=== PATIENT | male | born 1940 | race Caucasian/White ===

== ENCOUNTER 2016-12-10 08:02 | Inpatient (IN) | payer MEDICARE, BC ==
[~2016-12-10] VITALS: Ht 175.3 cm; Wt 85.1 kg
[2016-12-10] MEDS ORDERED: VICOTAB4 PO (08:11)
[2016-12-10] MEDS ORDERED: AMLO5 PO (08:11)
[2016-12-10] MEDS ORDERED: ENAL20TA81 PO (08:11)
[2016-12-10] MEDS ORDERED: ZOLO100T PO (08:54)
[2016-12-10] MEDS ORDERED: [UNRECOGNIZED DRUG - OTHER] PO (08:54)
[2016-12-10] MEDS ORDERED: VITA2000 PO (08:54)
[2016-12-10] MEDS ORDERED: ALLO300T2 PO (08:54)
[2016-12-10] MEDS ORDERED: [UNRECOGNIZED DRUG - OTHER] PO (08:54)
[2016-12-10] MEDS ORDERED: OMEG100010 PO (08:54)
[2016-12-10] MEDS ORDERED: ASPI1TAB69 PO (08:54)
[2016-12-10] MEDS ORDERED: LIPI10TA PO (08:54)
[2016-12-10] MEDS ORDERED: ESSENTIAL OILS TOPICAL (08:54)
[2016-12-10] MEDS ORDERED: ZYRT10CA PO (08:54)
[2016-12-21] MEDS ORDERED: MULTTAB4 PO (09:34)
[2016-12-21 09:43] VITALS: BP 150/79; PULSE 66; RESP 16; TEMP 98; O2SAT 95
[2016-12-21] MEDS: CHLORHEXIDINE GLUCONATE 4% SOLN 120 ML BTL TOPICAL SCH (10:30)
[2016-12-21] MEDS ORDERED: EXPAREL PERI-ARTICULAR INJECTION (TOTAL VOL. 60 ML) P-ARTICULR SCH ×2 (10:30)
[2016-12-21] MEDS ORDERED: ceFAZolin 2 GM PREMIX 50 ML IV SCH (10:30)
[2016-12-21] MEDS ORDERED: SODIUM CHLORID 0.9% 500 ML IV PRN (10:45)
[2016-12-21] MEDS ORDERED: METOPROLOL TARTRATE 25 MG TAB PO PRN (10:45)
[2016-12-21] MEDS ORDERED: POVIDONE IODINE 5% (ANTISEPSIS KIT) 4 APPLICATIONS EACH NARE PRN (10:45)
[2016-12-21] MEDS ORDERED: INSULIN HUMAN REGULAR 1,000 UNITS/10 ML VIAL SQ PRN (10:45)
[2016-12-21] MEDS ORDERED: CHLORHEXIDINE GLUCONATE 2 % 1 PACK (2 CLOTHS) TOPICAL PRN (10:45)
[2016-12-21] MEDS ORDERED: LACTATED RINGER'S 1000 ML IV PRN (10:45)
[2016-12-21] MEDS ORDERED: TRANEXAMIC ACID INJ 800 MG in SODIUM CHLORIDE 0.9% INJ 100 ML IV SCH ×2 (11:00→17:00)
[2016-12-21] MEDS ORDERED: PROPOFOL 200 MG/20 ML AMP IV ONE (11:29)
[2016-12-21] MEDS ORDERED: LACTATED RINGER'S 1000 ML INJ 1,000 ML IV ONE (11:30)
[2016-12-21] MEDS ORDERED: PHENYLEPH/NS 1000 MCG/10 ML SYR IV ONE (11:30)
[2016-12-21] MEDS ORDERED: NEOSTIGMINE 3 MG/3 ML SYR IV ONE (11:30)
[2016-12-21] MEDS ORDERED: ONDANSETRON HCL 4 MG/2 ML VIAL IV PUSH ONE (11:30)
[2016-12-21] MEDS ORDERED: ePHEDrine/NS 25 MG/5 ML SYR IV ONE (11:30)
[2016-12-21] MEDS ORDERED: GENTAMICIN SULFATE 80 MG/2 ML VIAL ONE (12:00)
[2016-12-21] MEDS: LACTATED RINGER'S 1000 ML INJ 1,000 ML IV SCH (12:08)
[2016-12-21] MEDS ORDERED: MIDAZOLAM HCL 2 MG/2 ML VIAL ONE (12:14)
[2016-12-21] MEDS ORDERED: Post-op Orders (for Pharmacy) MISC XX ONE (12:15)
[2016-12-21] MEDS ORDERED: TRANEXAMIC ACID INJ 0 MG in SODIUM CHLORIDE 0.9% INJ 100 ML IV SCH (12:15)
[2016-12-21] MEDS ORDERED: CETIRIZINE HCL 10 MG TAB PO PRN (12:15)
[2016-12-21] MEDS ORDERED: MORPHINE SULFATE 8 MG/ML INJ IV PUSH PRN (12:15)
[2016-12-21] MEDS ORDERED: SODIUM CHLORIDE 0.9% FLUSH 5 ML FLUSH IVF PRN (12:15)
[2016-12-21] MEDS ORDERED: ONDANSETRON HCL 4 MG/2 ML VIAL IVP PRN (12:15)
[2016-12-21] MEDS ORDERED: BISACODYL 10 MG SUPP RECTAL PRN (12:15)
[2016-12-21] MEDS ORDERED: NON-FORMULARY DRUG (Omega-3 Fatty Acids (Omega 3 1000 mg) 1 CAP) PO SCH (13:00)
[2016-12-21] MEDS ORDERED: *ONDANSETRON 4 MG VIAL PERIprocedural Use ONLY ONE (15:17)
[2016-12-21] MEDS ORDERED: *morphine SULFATE 8 MG/ML PERIprocedure ONLY ONE ×3 (15:20→15:52)
[2016-12-21] MEDS ORDERED: fentaNYL CITRATE 250 MCG/5 ML AMP ONE (15:20)
[2016-12-21] MEDS: KETOROLAC TROMETHAMINE 30 MG/ML (IVP) VIAL IVP SCH ×2 (15:36→20:24)
[2016-12-21] MEDS ORDERED: DO NOT ADM ANY ANTICOAGULANT DRUGS PRN (15:45)
[2016-12-21] MEDS ORDERED: *HYDROmorphone PF 1 MG VIAL PERIprocedural Use ONLY ONE (16:14)
--- NOTE | 2016-12-21 16:17 | RADRPT ---
EXAM DATE/TIME: 12/21/2016 15:45 [place] COMPARISON: No previous studies available for comparison. INDICATIONS : Post op right hip. MEDICAL HISTORY : None. SURGICAL HISTORY : None. ENCOUNTER: Initial ACUITY: 1 day PAIN SCORE: Non-responsive. LOCATION: Right hip. FINDINGS: 2 views of the right hip following recent total right arthroplasty demonstrates acetabular and proxim al femur hardware in place. There is a single acetabular screw. Soft tissue air is present, as expect ed. No fracture or acute finding is identified. Clips overlie the right scrotum. CONCLUSION: Expected changes are present following recent right total hip arthroplasty. No acute abnormalities se en. Kyler Moya MD on December 21, 2016 at 16:14 Board Certified Radiologist. This report was verified electronically.
[2016-12-21] MEDS: oxyCODONE/ACETAMINOPHEN 5 MG/325 MG TAB PO PRN ×2 (17:24→21:28)
[2016-12-21 17:30] VITALS: BP 121/69; PULSE 96; RESP 18; TEMP 95.4; O2SAT 94
--- NOTE | 2016-12-21 18:13 | PD.CONS ---
HPI Service [facility] Hospitalists Consult Requested By Dr arthur Reason for Consult Medical management Primary Care Physician Luis Fernando Garcia MD Diagnoses: History of Present Illness This is a 76-year-old male with past medical history of hypertension, hyperlipidemia, gout, depression who presents with [facility] for an elective right total hip replacement. Patient states that he has had long- standing arthritis of the hips, bilateral knees and hands. States that for some time he has been having some right knee pain after which the patient saw Dr. Arthur and after some imaging taken at his office was decided that he needed a right hip replacement. Patient states that he also had some physical therapy. I am being consulted for medical management, the patient denies chest pain, short of breath, nausea, vomiting, abdominal pain, dizziness, fevers or chills, cough. The patient states that he has some pain in the right hip which is 7/10 however he has not requested any pain medications yet. Review of Systems As per history of present illness, other systems reviewed by me and negative Past Family Social History Allergies: Coded Allergies: Oxycontin (Verified Allergy, Severe, Hallucinations, 12/21/16) Uncoded Allergies: TORSTEN (Allergy, Unknown, 12/10/16) Past Medical History 1. Gout. 2. Hypertension. 3. Depression. 4. Hyperlipidemia Past Surgical History 1. Surgery for retinal detachment repair in 2005. Reported Medications Multi Vitamin Mens (Multiple Vitamin) 1 Tab Tab 1 Tab PO DAILY Vitamin D3 (Cholecalciferol) 2,000 Unit Cap 2,000 Units PO DAILY Sigel 3 1000 mg (Sigel-3 Fatty Acids) 1 Cap Cap 1 Cap PO TID Zyrtec Allergy (Cetirizine HCl) 10 Mg Cap 10 Mg PO DAILY PRN Zoloft (Sertraline HCl) 100 Mg Tab 150 Mg PO DAILY Aspirin 81 Mg Tabdr 81 Mg PO DAILY Allopurinol 300 Mg Tab 300 Mg PO DAILY Lipitor (Atorvastatin Calcium) 10 Mg Tab 10 Mg PO Vasotec (Enalapril Maleate) 20 Mg Tab 20 Mg PO BID Norvasc (Amlodipine Besylate) 5 Mg Tab 5 Mg PO BID Vicoprofen (Hydrocodone-Ibuprofen) 7.5-200 Mg Tab 1 Tab PO Q6H PRN Active Ordered Medications Current Medications Medications (Trade) Dose Ordered Sig/Aaliyah Route Start Time Stop Time Status Last Admin Chlorhexidine Gluconate 1 applic 1 applic ONCE TOPICAL 12/21/16 10:30 12/24/16 10:29 12/21/16 10:30 Tranexamic Acid 800 mg/Sodium Chloride 108 ml @ 200 mls/hr ONCE IV 12/21/16 17:00 12/21/16 23:00 12/21/16 15:38 Bupivacaine Liposome 20 ml/ Sodium Chloride 60 ml @ 120 mls/hr ONCE P-ARTICULR 12/21/16 10:30 12/22/16 10:29 12/21/16 12:59 Lactated Ringer's 1,000 ml @ 30 mls/hr Q24H PRN IV 12/21/16 10:45 12/24/16 10:44 12/21/16 09:45 Sodium Chloride 500 ml @ 30 mls/hr [id number] PRN IV 12/21/16 10:45 12/24/16 10:44 (Lr 1000 ml Inj) 1,000 ml @ 80 mls/hr [id number] IV 12/21/16 12:08 12/21/16 12:08 (NS Flush) 2 ml UNSCH PRN IVF 12/21/16 12:15 IV Flush 2 ml 2 ml BID IVF 12/21/16 21:00 (Ancef Inj/NS Inj) 100 ml @ 200 mls/hr Q6H IV 12/21/16 18:00 12/22/16 06:29 12/21/16 17:24 (Morphine Inj) 5 mg Q3H PRN IV PUSH 12/21/16 12:15 (Percocet 5-325 Mg) 1 tab Q4H PRN PO 12/21/16 12:15 (Percocet 5-325 Mg) 2 tab Q4H PRN PO 12/21/16 12:15 12/21/16 17:24 (Toradol Inj) 15 mg Q6H IVP 12/21/16 14:00 12/23/16 08:01 12/21/16 15:36 (Zofran Inj) 4 mg Q6H PRN IVP 12/21/16 12:15 (Colace) 100 mg BID PO 12/22/16 21:00 (Ambien) 5 mg HS PRN PO 12/21/16 12:15 (Dulcolax Supp) 10 mg DAILY PRN RECTAL 12/21/16 12:15 (Milk Of Magnesia Liq) 30 ml DAILY PRN PO 12/21/16 12:15 (Ecotrin Ec) 81 mg BID PO 12/21/16 21:00 (Zyloprim) 300 mg DAILY PO 12/22/16 09:00 (Norvasc) 5 mg BID PO 12/21/16 21:00 (ZyrTEC) 10 mg DAILY PRN PO 12/21/16 12:15 (Vitamin D3) 2,000 units DAILY PO 12/22/16 09:00 (Vasotec) 20 mg BID PO 12/21/16 21:00 (Theragran) 1 tab DAILY PO 12/22/16 09:00 (Zoloft) 150 mg DAILY PO 12/22/16 09:00 Miscellaneous Information ALL NURSING DEPARTME... UNSCH PRN .XX 12/21/16 15:45 12/22/16 15:44 Physical Exam Vital Signs Vital Signs Date Time Temp Pulse Resp B/P Pulse Ox O2 Delivery O2 Flow Rate FiO2 12/21/16 17:00 97.4 84 12 122/63 94 Nasal Cannula 4 12/21/16 16:30 85 12 125/65 94 Nasal Cannula 4 12/21/16 16:15 79 13 126/66 94 Nasal Cannula 4 12/21/16 16:00 87 13 139/66 94 Nasal Cannula 4 12/21/16 15:45 71 15 131/66 96 Nasal Cannula 4 12/21/16 15:30 62 14 139/68 95 Nasal Cannula 4 12/21/16 15:12 97.4 76 15 140/80 94 Nasal Cannula 4 12/21/16 09:43 98.0 66 16 150/79 95 Physical Exam GENERAL: This is a well-nourished, well-developed patient, in no apparent distress. SKIN: No rashes, ecchymoses or lesions. Cool and dry. HEAD: Atraumatic. Normocephalic. No temporal or scalp tenderness. EYES: Pupils equal round and reactive. Extraocular motions intact. No scleral icterus. No injection or drainage. ENT: Nose without bleeding, purulent drainage or septal hematoma. Throat without erythema, tonsillar hypertrophy or exudate. Uvula midline. Airway patent. NECK: Trachea midline. No JVD or lymphadenopathy. Supple, nontender, no meningeal signs. CARDIOVASCULAR: Regular rate and rhythm without murmurs, gallops, or rubs. RESPIRATORY: Clear to auscultation. Breath sounds equal bilaterally. No wheezes , rales, or rhonchi. GASTROINTESTINAL: Abdomen soft, non-tender, nondistended. No hepato-splenomegaly , or palpable masses. No guarding. MUSCULOSKELETAL: Extremities without clubbing, cyanosis, or edema. No joint tenderness, effusion, or edema noted. No calf tenderness. Negative Homans sign bilaterally. Dressing over surgical scar on right hip C/D/I. No hematoma observed. NEUROLOGICAL: Awake and alert. Cranial nerves II through XII intact. Motor and sensory grossly within normal limits. Five out of 5 muscle strength in all muscle groups. Normal speech. Laboratory Laboratory Tests Test 12/21/16 09:45 Blood Type B POSITIVE Antibody Screen NEGATIVE Blood Bank Comment Imaging Last Impressions Hip X-Ray 12/21/16 1208 Signed Impressions: Service Date/Time: Wednesday, December 21, 2016 15:45 - CONCLUSION: Expected changes are present following recent right total hip arthroplasty. No acute abnormalities seen. Kyler Moya MD Assessment and Plan Problem List: (1) Primary osteoarthritis of right hip ICD Code: M16.11 Status: Acute Plan: Patient is status post right total hip replacement. Pain control as per orthopedic surgery recommendations. Management as per orthopedic surgery. Patient on Percocet and Ketorolac IV. I will order cbc to check hemoglobin, CMP to check for electrolyte abnormalities. (2) Status post total hip replacement, right ICD Code: Z96.641 Status: Acute Plan: As above (3) Depression ICD Code: F32.9 Status: Chronic Plan: Continue Zoloft, seems to be stable. (4) HTN (hypertension) ICD Code: I10 Status: Chronic Plan: Continue home medications. The patient is on amlodipine, enalapril. BP stable. (5) Hyperlipidemia ICD Code: E78.5 Status: Chronic Plan: Hold statin for now. May resume upon discharge. (6) Gout ICD Code: M10.9 Status: Chronic Plan: Seems stable. Continue allopurinol. Assessment and Plan GI prophylaxis: PPI. DVT prophylaxis: SCDs, will prophylaxis as per orthopedic surgery recommendations. Discussed Condition With Patient Problem Qualifiers (1) Gout: Qualified Code: M1A.9XX0 - Chronic gout without tophus, unspecified cause, unspecified site Lloyd Schafer MD Dec 21, 2016 18:13
[2016-12-21 19:46] VITALS: BP 115/63; PULSE 88; RESP 18; TEMP 98; O2SAT 96
[2016-12-21] MEDS: ENALAPRIL MALEATE 10 MG TAB PO SCH (20:24)
[2016-12-21] MEDS: amLODIPine BESYLATE 5 MG TAB PO SCH (20:24)
[2016-12-21] MEDS: SODIUM CHLORIDE 0.9% FLUSH 5 ML FLUSH IVF SCH (20:25)
[2016-12-21 20:26] LABS: AUTOMATED NEUTROPHIL # 8.5 TH/MM3 (1.8-7.7); BASOPHIL % 0.1 % (0.0-2.0); HEMATOCRIT 41.1 % (39.0-51.0); HEMO FLAGS DIFF FINAL; LYMPH % 6.6 % (9.0-44.0); LYMPHOCYTE # 0.7 TH/MM3 (1.0-4.8); MEAN CELL VOLUME 94.5 FL (80.0-100.0); MEAN CORPUSCULAR HEMOGLOBIN 32.4 PG (27.0-34.0); MEAN CORPUSCULAR HGB CONC 34.3 % (32.0-36.0); MONO % 7.5 % (0.0-8.0); NEUT % 85.8 % (16.0-70.0); PLATELET COUNT 137 TH/MM3 (150-450); RED BLOOD COUNT 4.35 MIL/MM3 (4.50-5.90); WHITE BLOOD COUNT 9.9 TH/MM3 (4.0-11.0)
[2016-12-21] MEDS: ZOLPIDEM TARTRATE 5 MG TAB PO PRN (20:30)
[2016-12-21] MEDS: ASPIRIN EC 81 MG TABEC PO SCH (20:30)
[2016-12-21 20:54] LABS: ALKALINE PHOSPHATASE 39 U/L (45-117); ALT (GPT) 43 U/L (12-78); ANION GAP 8 MEQ/L (5-15); AST (GOT) 31 U/L (15-37); BLOOD UREA NITROGEN 16 MG/DL (7-18); CHLORIDE 103 MEQ/L (98-107); GLOMERULAR FILTRATION RATE 54 ML/MIN (>89); MAGNESIUM 1.7 MG/DL (1.5-2.5); SODIUM (NA) 138 MEQ/L (136-145); TOTAL BILIRUBIN ADULT 0.4 MG/DL (0.2-1.0)
[2016-12-21 20:55] LABS: POTASSIUM 4.8 MEQ/L (3.5-5.1)
[2016-12-22] VITALS: BP 110/62; PULSE 77; RESP 17; TEMP 97.2; O2SAT 94
[2016-12-22] MEDS: oxyCODONE/ACETAMINOPHEN 5 MG/325 MG TAB PO PRN ×7 (01:22→23:19)
[2016-12-22] MEDS: KETOROLAC TROMETHAMINE 30 MG/ML (IVP) VIAL IVP SCH ×4 (01:22→20:34)
[2016-12-22 04:00] VITALS: BP 105/56; PULSE 79; RESP 17; TEMP 97.1; O2SAT 93
--- NOTE | 2016-12-22 06:34 | PD.ORT.PN ---
Subjective Post Op Day #: 1 Subjective Remarks He is doing well. He was OOB in the chair a couple hours last night. He walked to the bathroom. Distance Walked 2 feet with PT. Objective Vitals Vital Signs Date Time Temp Pulse Resp B/P Pulse Ox O2 Delivery O2 Flow Rate FiO2 12/22/16 04:00 97.1 79 17 105/56 93 12/22/16 00:00 97.2 77 17 110/62 94 12/21/16 19:46 98.0 88 18 115/63 96 12/21/16 18:24 18 12/21/16 17:30 95.4 96 18 121/69 94 12/21/16 17:00 97.4 84 12 122/63 94 Nasal Cannula 4 12/21/16 16:30 85 12 125/65 94 Nasal Cannula 4 12/21/16 16:15 79 13 126/66 94 Nasal Cannula 4 12/21/16 16:00 87 13 139/66 94 Nasal Cannula 4 12/21/16 15:45 71 15 131/66 96 Nasal Cannula 4 12/21/16 15:30 62 14 139/68 95 Nasal Cannula 4 12/21/16 15:12 97.4 76 15 140/80 94 Nasal Cannula 4 12/21/16 09:43 98.0 66 16 150/79 95 I/O 12/21/16 12/21/16 12/21/16 12/22/16 12/22/16 12/22/16 07:00 15:00 23:00 07:00 15:00 23:00 Intake Total 1960 ml Output Total 300 ml Balance 1660 ml Intake Oral 360 ml Other 1600 ml Output Urine Total 0 ml Estimated Blood Loss 300 ml # Voids 0 # Bowel Movements 0 Result Diagram: 12/21/16199912/21/161999 Imaging Last 24 hours Impressions Hip X-Ray 12/21/16 1208 Signed Impressions: Service Date/Time: Wednesday, December 21, 2016 15:45 - CONCLUSION: Expected changes are present following recent right total hip arthroplasty. No acute abnormalities seen. Kyler Moya MD Objective Remarks He is resting comfortably, supine in bed. The dressing is dry and intact. The neurovascular status is intact. Assessment & Plan Ortho Post Op Day #: 1 Problem List: (1) Status post total hip replacement, right Plan: Continue postop care and PT. Assessment and Plan Orthopaedically stable. Condition: Good. DVT prophylaxis: TEDs, sequentials, ASA. Discharge plans: Home with [facility]. Has appointment. Rx: Percocet [id number]. Kash Russo MD (Charles) Dec 22, 2016 06:34
[2016-12-22 07:11] LABS: HEMATOCRIT 40.2 % (39.0-51.0); REVIEW FLAG FINAL
[2016-12-22] MEDS: MAGNESIUM HYDROXIDE SUSP 30 ML CUP PO PRN (07:59)
[2016-12-22] MEDS: amLODIPine BESYLATE 5 MG TAB PO SCH ×2 (08:00→20:13)
[2016-12-22] MEDS: ASPIRIN EC 81 MG TABEC PO SCH ×2 (08:00→20:13)
[2016-12-22] MEDS: ENALAPRIL MALEATE 10 MG TAB PO SCH ×2 (08:00→20:13)
[2016-12-22] MEDS: CHOLECALCIFEROL (VIT D3) 1000 UNIT TAB PO SCH (08:00)
[2016-12-22] MEDS: SERTRALINE HCL 100 MG TAB PO SCH (08:01)
[2016-12-22 08:10] VITALS: BP 120/56; PULSE 74; RESP 16; TEMP 99; O2SAT 90
[2016-12-22] MEDS: MULTIVITAMIN TAB PO SCH (08:10)
[2016-12-22] MEDS: SODIUM CHLORIDE 0.9% FLUSH 5 ML FLUSH IVF SCH ×2 (08:10→20:34)
[2016-12-22] MEDS ORDERED: ASPI81TA11 PO (08:35)
[2016-12-22] MEDS ORDERED: OXYC1TAB63 PO (08:35)
--- NOTE | 2016-12-22 08:38 | HHI.FF ---
Face to Face Verification Diagnosis: (1) Status post total hip replacement, right Physical Therapy Gait training Hip: Total hip, Protocol: Right, Posterior hip precautions, Progress to weight bearing Canvas Knee Splint: When in bed & 2 pillows btw thighs Right LE Weight Bearing: WB as tolerated Right LE Range of Motion: Active ROM Nursing Nursing: Dressing changes Dressing Changes: Daily dressing change, Coverderm/Primapore Additional Instructions Remove steristrips on postop day14. I have seen patient Anuel Hutchinson on 12/22/16. My clinical findings support the need for the requested home health care services because: Ltd mobility - disease progression Limited ability to care for self High risk of falls I certify that my clinical findings support that this patient is homebound because: Post-op weakness Unsteady gait/balance Unsafe to leave home unassisted Kash Russo MD (Charles) Dec 22, 2016 08:38
[2016-12-22] MEDS ORDERED: ALLOPURINOL 300 MG TAB PO SCH (09:00)
[2016-12-22] MEDS: CHLORHEXIDINE GLUCONATE 4% SOLN 120 ML BTL TOPICAL SCH (10:30)
--- NOTE | 2016-12-22 10:51 | HHI.PR ---
Subjective Remarks Follow-up for medical management Patient complaining about cough that started this morning. He denies any shortness of breathing. He remains afebrile. Patient stated that the sore throat after he was extubated has improved. Patient has no other complaints. No acute events since he was last seen. Objective Vitals Vital Signs Date Time Temp Pulse Resp B/P Pulse Ox O2 Delivery O2 Flow Rate FiO2 12/22/16 08:10 99.0 74 16 120/56 90 12/22/16 07:05 Room Air 12/22/16 04:00 97.1 79 17 105/56 93 12/22/16 00:00 97.2 77 17 110/62 94 12/21/16 19:46 98.0 88 18 115/63 96 12/21/16 18:24 18 12/21/16 17:30 95.4 96 18 121/69 94 12/21/16 17:00 97.4 84 12 122/63 94 Nasal Cannula 4 12/21/16 16:30 85 12 125/65 94 Nasal Cannula 4 12/21/16 16:15 79 13 126/66 94 Nasal Cannula 4 12/21/16 16:00 87 13 139/66 94 Nasal Cannula 4 12/21/16 15:45 71 15 131/66 96 Nasal Cannula 4 12/21/16 15:30 62 14 139/68 95 Nasal Cannula 4 12/21/16 15:12 97.4 76 15 140/80 94 Nasal Cannula 4 I/O 12/21/16 12/21/16 12/21/16 12/22/16 12/22/16 12/22/16 07:00 15:00 23:00 07:00 15:00 23:00 Intake Total 1960 ml 120 ml Output Total 300 ml Balance 1660 ml 120 ml Intake Oral 360 ml 120 ml Other 1600 ml Output Urine Total 0 ml Estimated Blood Loss 300 ml # Voids 0 1 # Bowel Movements 0 0 Result Diagram: 12/22/1612 12/21/161999 Objective Remarks GENERAL: in NAD NECK: Supple, trachea midline. No JVD or lymphadenopathy. CARDIOVASCULAR: Regular rate and rhythm without murmurs, gallops, or rubs. RESPIRATORY: Breath sounds equal bilaterally. No accessory muscle use. GASTROINTESTINAL: Abdomen soft, non-tender, nondistended. Medications and IVs Current Medications Chlorhexidine Gluconate 1 applic 1 applic ONCE TOPICAL Last administered on 10:30; Start 12/21/16 at 10:30; Stop 12/24/16 at 10:29 Cefazolin Sodium/ Dextrose 50 ml @ 100 mls/hr MILKING MACHINE TECHNICIAN IV Last administered on 12/21/16 12:34; Start 12/21/16 at 10:30; Stop 12/24/16 at 10:29 Tranexamic Acid 800 mg/Sodium Chloride 108 ml @ 200 mls/hr ONCE IV Last administered on 12/21/16 12:47; Start 12/21/16 at 11:00; Stop 12/21/16 at 14:00 ; Status DC Tranexamic Acid 800 mg/Sodium Chloride 108 ml @ 200 mls/hr ONCE IV Last administered on 12/21/16 15:38; Start 12/21/16 at 17:00; Stop 12/21/16 at 23:00 ; Status DC Bupivacaine Liposome 20 ml/ Sodium Chloride 60 ml @ 120 mls/hr ONCE P-ARTICULR Last administered on 12/21/16 12:59; Start 12/21/16 at 10:30; Stop 12/22/16 at 10:29; Status DC Lactated Ringer's 1,000 ml @ 30 mls/hr Q24H PRN IV SEE LABEL COMMENTS Last administered on 12/21/16 09:45; Start 12/21/16 at 10:45; Stop 12/24/16 at 10:44 Sodium Chloride (NS 500 ml Inj) 500 ml @ 30 mls/hr [id number] PRN IV SEE LABEL COMMENTS; Start 12/21/16 at 10:45; Stop 12/24/16 at 10:44 Metoprolol Tartrate (Lopressor) 25 mg MILKING MACHINE TECHNICIAN PRN PO SEE LABEL COMMENTS; Start 12/21/16 at 10:45; Stop 12/24/16 at 10:44 Povidone Iodine (Betadine 5% Antisepsis Kit) 1 applic MILKING MACHINE TECHNICIAN PRN EACH NARE SEE LABEL COMMENTS Last administered on 12/21/16 10:50; Start 12/21/16 at 10:45 ; Stop 12/24/16 at 10:44 Chlorhexidine Gluconate (Chlorhexidine 2% Cloth) 3 pack MILKING MACHINE TECHNICIAN PRN TOPICAL SEE LABEL COMMENTS Last administered on 12/21/16 10:50; Start 12/21/16 at 10:45 ; Stop 12/24/16 at 10:44 Insulin Human Regular (NovoLIN R INJ) See Protocol Table ... MILKING MACHINE TECHNICIAN PRN SQ SEE PROTOCOL TABLE; Start 12/21/16 at 10:45; Stop 12/24/16 at 10:44 Gentamicin Sulfate 240 mg 240 mg STK-MED ONCE .ROUTE Last administered on 13:18; Start 12/21/16 at 12:00; Stop 12/21/16 at 12:01; Status DC Lactated Ringer's (Lr 1000 ml Inj) 1,000 ml @ 80 mls/hr [id number] IV Last administered on 12/21/16 12:08; Start 12/21/16 at 12:08 IV Flush (NS Flush) 2 ml UNSCH PRN IVF FLUSH AFTER USING IV ACCESS; Start 12/21 at 12:15 IV Flush 2 ml 2 ml BID IVF Last administered on 12/22/16 08:10; Start at 21:00 Cefazolin Sodium/ Sodium Chloride (Ancef Inj/NS Inj) 100 ml @ 200 mls/hr Q6H IV Last administered on 12/22/16 05:55; Start 12/21/16 at 18:00; Stop at 06:29; Status DC Miscellaneous Information (Post-op Orders (for Pharmacy)) STAT ONCE XX ; Start 12/21/16 at 12:15; Stop 12/21/16 at 13:53; Status DC Morphine Sulfate (Morphine Inj) 5 mg Q3H PRN IV PUSH BREAKTHROUGH PAIN; Start 12/21/16 at 12:15 Oxycodone/ Acetaminophen (Percocet 5-325 Mg) 1 tab Q4H PRN PO PAIN LESS THAN 5 ON SCALE Last administered on 12/22/16 06:34; Start 12/21/16 at 12:15 Oxycodone/ Acetaminophen (Percocet 5-325 Mg) 2 tab Q4H PRN PO PAIN SCALE 5 TO 7 Last administered on 12/22/16 10:14; Start 12/21/16 at 12:15 Ketorolac Tromethamine 15 mg 15 mg Q6H IVP Last administered on 12/22/16 08:00 ; Start 12/21/16 at 14:00; Stop 12/23/16 at 08:01 Tranexamic Acid/ Sodium Chloride (Cyklokapron Inj/ NS Inj) 100 ml @ 200 mls/hr UNSCH IV ; Start 12/21/16 at 12:15; Stop 12/21/16 at 12:44; Status UNV Ondansetron HCl (Zofran Inj) 4 mg Q6H PRN IVP NAUSEA OR VOMITING; Start at 12:15 Docusate Sodium (Colace) 100 mg BID PO ; Start 12/22/16 at 21:00 Zolpidem Tartrate (Ambien) 5 mg HS PRN PO SLEEP Last administered on 12/21/16 20:30; Start 12/21/16 at 12:15 Bisacodyl (Dulcolax Supp) 10 mg DAILY PRN RECTAL CONSTIPATION; Start 12/21/16 at 12:15 Magnesium Hydroxide (Milk Of Magnesia Liq) 30 ml DAILY PRN PO CONSTIPATION Last administered on 12/22/16 07:59; Start 12/21/16 at 12:15 Aspirin (Ecotrin Ec) 81 mg BID PO Last administered on 12/22/16 08:00; Start 12/21/16 at 21:00 Allopurinol (Zyloprim) 300 mg DAILY PO Last administered on 12/22/16 08:00; Start 12/22/16 at 09:00 Amlodipine Besylate (Norvasc) 5 mg BID PO Last administered on 12/22/16 08:00 ; Start 12/21/16 at 21:00 Cetirizine HCl (ZyrTEC) 10 mg DAILY PRN PO ALLERGIES; Start 12/21/16 at 12:15 Cholecalciferol (Vitamin D3) 2,000 units DAILY PO Last administered on 08:00; Start 12/22/16 at 09:00 Enalapril Maleate (Vasotec) 20 mg BID PO Last administered on 12/22/16 08:00; Start 12/21/16 at 21:00 Multivitamins (Theragran) 1 tab DAILY PO Last administered on 12/22/16 08:10; Start 12/22/16 at 09:00 Sertraline HCl (Zoloft) 150 mg DAILY PO Last administered on 12/22/16 08:01; Start 12/22/16 at 09:00 Non-Formulary Medication 1 cap TID PO ; Start 12/21/16 at 13:00; Status UNV Midazolam HCl (Versed Inj) 2 mg STK-MED ONCE .ROUTE Last administered on 12:14; Start 12/21/16 at 12:14; Stop 12/21/16 at 12:15; Status DC Ondansetron HCl (*ZOFRAN INJ PERIprocedural ONLY) 4 mg STK-MED ONCE .ROUTE Last administered on 12/21/16 15:16; Start 12/21/16 at 15:17; Stop 12/21/16 at 15:18; Status DC Morphine Sulfate (*morphine INJ PERIprocedure ONLY) 8 mg STK-MED ONCE .ROUTE Last administered on 12/21/16 15:20; Start 12/21/16 at 15:20; Stop 12/21/16 at 15:21; Status DC Fentanyl Citrate (fentaNYL INJ) 500 mcg STK-MED ONCE .ROUTE ; Start 12/21/16 at 15:20; Stop 12/21/16 at 15:21; Status DC Miscellaneous Information ALL NURSING DEPARTME... UNSCH PRN .XX SEE LABEL COMMENTS; Start 12/21/16 at 15:45; Stop 12/22/16 at 15:44 Morphine Sulfate (*morphine INJ PERIprocedure ONLY) 8 mg STK-MED ONCE .ROUTE Last administered on 12/21/16 15:41; Start 12/21/16 at 15:41; Stop 12/21/16 at 15:42; Status DC Morphine Sulfate (*morphine INJ PERIprocedure ONLY) 8 mg STK-MED ONCE .ROUTE Last administered on 12/21/16 15:52; Start 12/21/16 at 15:52; Stop 12/21/16 at 15:53; Status DC Hydromorphone HCl (*DILAUDID PF INJ PERIprocedural ONLY) 1 mg STK-MED ONCE .ROUTE Last administered on 12/21/16 16:14; Start 12/21/16 at 16:14; Stop 07/29 at 16:15; Status DC A/P Problem List: (1) Primary osteoarthritis of right hip ICD Code: M16.11 Status: Acute (2) Status post total hip replacement, right ICD Code: Z96.641 Status: Acute (3) Depression ICD Code: F32.9 Status: Chronic (4) HTN (hypertension) ICD Code: I10 Status: Chronic (5) Hyperlipidemia ICD Code: E78.5 Status: Chronic (6) Gout ICD Code: M10.9 Status: Chronic Assessment and Plan Primary osteoarthritis of the right hip -s/p right total hip replacement on 12/21. -Pain control as per orthopedic surgery recommendations. -Management as per orthopedic surgery. Cough -Most likely due to post intubation. -Patient lungs are clear and clinically doing well. Continue to monitor. Depression/hyponatremia/hypertension/gout -Resume home medication. DVT prophylaxis -SCDs, will prophylaxis as per orthopedic surgery recommendations. Discharge Planning Patient is medically clear for discharge. Problem Qualifiers (1) Gout: Qualified Code: M1A.9XX0 - Chronic gout without tophus, unspecified cause, unspecified site Miryam Hanson MD Dec 22, 2016 10:51
[2016-12-22 11:42] VITALS: BP 107/55; PULSE 74; RESP 20; TEMP 99.8; O2SAT 93
[2016-12-22] MEDS: LACTATED RINGER'S 1000 ML INJ 1,000 ML IV SCH ×2 (13:08→21:39)
[2016-12-22 16:00] VITALS: BP 119/57; PULSE 75; RESP 20; TEMP 97.8; O2SAT 93
[2016-12-22 19:51] VITALS: BP 120/63; PULSE 78; RESP 18; TEMP 97; O2SAT 95
[2016-12-22] MEDS: DOCUSATE SODIUM 100 MG CAP PO SCH (20:13)
[2016-12-22] MEDS: ZOLPIDEM TARTRATE 5 MG TAB PO PRN (20:59)
[2016-12-23] VITALS: BP 129/73; PULSE 82; RESP 18; TEMP 97.4; O2SAT 97
[2016-12-23] MEDS: KETOROLAC TROMETHAMINE 30 MG/ML (IVP) VIAL IVP SCH ×2 (01:23→08:03)
[2016-12-23 04:00] VITALS: BP 139/65; PULSE 73; RESP 17; TEMP 97.2; O2SAT 95
[2016-12-23] MEDS: MAGNESIUM HYDROXIDE SUSP 30 ML CUP PO PRN (04:28)
[2016-12-23] MEDS: oxyCODONE/ACETAMINOPHEN 5 MG/325 MG TAB PO PRN ×2 (04:29→08:04)
[2016-12-23 06:23] LABS: REVIEW FLAG FINAL
--- NOTE | 2016-12-23 07:18 | PD.ORT.PN ---
Subjective Post Op Day #: 2 Subjective Remarks He is doing very well. He did well with PT. Distance Walked 60 feet with PT. Objective Vitals Vital Signs Date Time Temp Pulse Resp B/P Pulse Ox O2 Delivery O2 Flow Rate FiO2 12/23/16 04:00 97.2 73 17 139/65 95 12/23/16 00:00 97.4 82 18 129/73 97 12/22/16 19:51 97.0 78 18 120/63 95 12/22/16 18:31 21 12/22/16 16:00 97.8 75 20 119/57 93 12/22/16 11:42 99.8 74 20 107/55 93 12/22/16 08:10 99.0 74 16 120/56 90 I/O 12/22/16 12/22/16 12/22/16 12/23/16 12/23/16 12/23/16 07:00 15:00 23:00 07:00 15:00 23:00 Intake Total 120 ml 240 ml 360 ml Balance 120 ml 240 ml 360 ml Intake Oral 120 ml 240 ml 360 ml # Voids 1 2 1 4 # Bowel Movements 0 0 0 0 Result Diagram: 12/23/16 0423 12/21/161999 Imaging Last 24 hours Impressions Hip X-Ray 12/21/16 1208 Signed Impressions: Service Date/Time: Wednesday, December 21, 2016 15:45 - CONCLUSION: Expected changes are present following recent right total hip arthroplasty. No acute abnormalities seen. Kyler Moya MD Objective Remarks He is resting comfortably, supine in bed. The dressing is dry and intact. There is no erythema or induration. The neurovascular status is intact. Assessment & Plan Ortho Post Op Day #: 2 Problem List: (1) Status post total hip replacement, right Plan: Continue postop care and PT. Assessment and Plan Orthopaedically stable. Condition: Good. DVT prophylaxis: TEDs, sequentials, ASA. Discharge plans: Home with [facility]. Has appointment. Rx: Percocet 5/325. Kash Russo MD ([place]) Dec 23, 2016 07:18
[2016-12-23 08:00] VITALS: BP 122/60; PULSE 72; RESP 16; TEMP 97.5; O2SAT 92
[2016-12-23] MEDS: ASPIRIN EC 81 MG TABEC PO SCH (08:03)
[2016-12-23] MEDS: SERTRALINE HCL 100 MG TAB PO SCH (08:03)
[2016-12-23] MEDS: CHOLECALCIFEROL (VIT D3) 1000 UNIT TAB PO SCH (08:03)
[2016-12-23] MEDS: MULTIVITAMIN TAB PO SCH (08:03)
[2016-12-23] MEDS: amLODIPine BESYLATE 5 MG TAB PO SCH (08:04)
[2016-12-23] MEDS: ENALAPRIL MALEATE 10 MG TAB PO SCH (08:04)
[2016-12-23] MEDS: DOCUSATE SODIUM 100 MG CAP PO SCH (08:04)
--- NOTE | 2016-12-24 21:32 | MP ---
cc: Jessica PUGH. DATE OF SURGERY 12/21/16 PREOPERATIVE DIAGNOSIS Primary osteoarthritis right hip. POSTOPERATIVE DIAGNOSIS Primary osteoarthritis right hip. OPERATION PERFORMED Right total hip arthroplasty with Mantador prosthesis. SURGEON Jeanne Pugh MD [employer] Amy COLEY ANESTHESIA General endotracheal with supplemental local. INDICATIONS AND FINDINGS This 76-year-old man has had right hip pain for several months with pain on weightbearing. He has been able to walk only a limited distance because of the pain. He has trouble getting into and out of his car because it s low. He has right groin and lateral hip pain. He has pain when he lies on that side. He has used nonsteroidal anti-inflammatory agents and analgesics without any benefit. He has tried exercises, ambulatory aids and activity modification, but he still has difficulty with activities of daily living. Physical findings showed limited motion in the right hip with tenderness on motion. X-ray showed loss of articular cartilage to [id number], particularly in the AP view, with lateral osteophytes in the acetabulum and femoral head creating femoral acetabular impingement. Operative findings showed severe osteoarthritis in the hip with eburnation and loss of articular cartilage to bone on bone throughout the hip. There are large osteophytes. A prosthesis used is a Gerardo prosthesis with the acetabulum being a tritanium cluster cup size 52 with a single screw. There was a 32 mm inner diameter 0 degree liner of X3 polyethylene. The femoral component was an Accolade II size 3 x 132 degrees with a Biolox Delta 32 mm outer diameter head with a -4 mm neck length. PROCEDURE IN DETAIL The patient was brought to the operating room and had a general anesthetic administered. He received prophylactic antibiotics in the form of Ancef and also received tranexamic acid. A general endotracheal anesthetic was administered. He was placed in the lateral position on a Biomet lateral positioner with the right hip up. An axillary roll was under the left shoulder. The right hip was then prepped with alcohol, Hibiclens and Chloraprep and draped in the usual manner with the hip draped free. An appropriate time-out procedure was carried out. Local anesthesia was administered in the incision site prior to making incision. An incision was made, centered over the posterior lateral aspect of the greater trochanter measuring approximately 12-15 cm. The incision was deepened through the subcutaneous tissues to the fascia belinda and gluteus fascia which were incised in line with the skin incision and their fibers. A Charnley retractor was placed with towels. The sciatic nerve was identified and protected throughout the procedure. With the hip internally rotated, the external rotators were released off the posterior aspect of the greater trochanter under direct vision. These were reflected posteriorly. A posteriorly based flap of capsule was developed for the capsulotomy. The hip was then dislocated. The femoral neck was transected at the appropriate level with the oscillating saw. The femoral head was removed. A Villalobos retractor was placed under the neck. The femur was then prepared using a box osteotome initially followed by a canal finding awl and a curette. Broaching was then started with the size 0 broach and went in one size increments up to size 3. This seated appropriately and stabilized appropriately. Calcar planing was carried out. The debris was rinsed from the wound. The hip was then repositioned. Retractors were placed about the acetabulum. Labral tissues were excised. Soft tissues were excised from the depths of the acetabulum. Reaming was then started at 43 mm and went in 1-mm increments to size 52. In the interim, a size 50 trial was tried but was small. At size 52, a trial prosthesis was impacted and seated very well. This was then removed. The 52 mm tritanium cluster cup was then impacted into place and seated appropriately. A drill hole was made through one of the fenestrations and an appropriate size 25 mm screw was inserted. The 0 degree 32-mm inner diameter liner was impacted into place. A series of trial reduction was then carried out going from a neutral to +4 and to -4. +4 neck length did not allow for adequate adduction and extension and did not allow for adequate extension. A neutral was relatively tight. At -4 mm the leg length appeared to be appropriate. There was excellent stability and excellent mobility with no pistoning. The femoral component trial and the broach were then removed. The hip was irrigated. Local anesthetic was administered throughout the hip with Exparel. The femoral component which was a size 3 x 132 degrees Accolade II prosthesis was impacted into place. A trial reduction was again carried out. This was deemed to be appropriate for the -4 mm neck length. A 32 mm Biolox Delta head with a -4 mm neck length was chosen and was then impacted onto the trunnion that had been cleaned and dried. The hip was reduced. The range of motion was checked and was found to be excellent. The stability was excellent. The leg length appeared appropriate. There was no pistoning. The capsule was then repaired to the posterior aspect of the greater trochanter along with the external rotators using #1 Vicryl Krackow sutures, leaving a transosseous bridge. The sciatic nerve was again inspected. The fascia belinda and gluteus fascia were repaired with #1 Vicryl interrupted [id number] sutures. The subcutaneous tissues closed with 2-0 Vicryl interrupted simple sutures with buried knots. The skin was closed with a continuous subcuticular closure of 4-0 Monocryl. The wound was then dressed with Steri-Strips followed by dry dressing, ABD pads and Medipore compression hip dressing. The patient was transferred from the operating room to the recovery room in satisfactory condition having tolerated the procedure well. Counts were correct. Specimens none. Estimated blood loss 250 mL. MD ANA CRISTINA Tatum/ /6:53 PM /9:02 PM
== END 2016-12-23 08:49 | disposition home health service (06) | DRG 470 ==
LOC: HSDI 12-21 08:50 → N06A 12-21 17:17
PROVIDERS: ADMIT Orthopaedic Surgery; ATTEND Orthopaedic Surgery
PROC: 0SR902Z Replacement of Right Hip Joint with Metal on Polyethylene Synthetic Substitute, Open Approach (ICD-10-PCS; principal; 2016-12-21 12:23)
DX: M16.11 Unilateral primary osteoarthritis, right hip (principal); I10 Essential (primary) hypertension; E78.5 Hyperlipidemia, unspecified; F32.9 Major depressive disorder, single episode, unspecified; M1A.9XX0 Chronic gout, unspecified, without tophus (tophi); Z96.652 Presence of left artificial knee joint; Z96.642 Presence of left artificial hip joint; R05 Cough; Z88.5 Allergy status to narcotic agent
CPT/HCPCS: 73502; 80053; 83735; 84100; 85014; 85018; 85025; 86850; 86900; 86901; 94150; C1776; C9290; J0690; J1170; J1580; J1885; J2250; J2270; J2370; J2405; J2710; J3010; J7120; L1830

== ENCOUNTER → 2016-12-10 | Outpatient (CLI) | payer MEDICARE, BC ==
[~2016-12-10] MED LIST: ALLO300 PO; ALLO300T2 PO; AMLO5 PO; ASPI1TAB69 PO; ASPI81TA11 PO; ASPI81TA82 PO; CETI10 PO; ENAL20TA81 PO; ESSENTIAL OILS TOPICAL; FENT75DI TD; HYDR7.5T76 PO; LIPI10TA PO; MULTTAB4 PO; NORV5TAB PO; OMEG100010; OMEG100010 PO; OXYC1TAB63 PO; SERT100 PO; VICOTAB4 PO; VITA2000 PO; ZOLO100T PO; ZYRT10CA PO; [UNRECOGNIZED DRUG - OTHER] PO; [UNRECOGNIZED DRUG - OTHER] PO
[2016-12-10 08:59] LABS: AUTOMATED NEUTROPHIL # 3.7 TH/MM3 (1.8-7.7); BASOPHIL % 0.4 % (0.0-2.0); EOSINOPHIL # 0.1 TH/MM3 (0-0.4); EOSINOPHIL % 1.2 % (0.0-4.0); HEMATOCRIT 47.6 % (39.0-51.0); HEMO FLAGS DIFF FINAL; LYMPH % 20.4 % (9.0-44.0); LYMPHOCYTE # 1.1 TH/MM3 (1.0-4.8); MEAN CELL VOLUME 93.5 FL (80.0-100.0); MEAN CORPUSCULAR HEMOGLOBIN 32.4 PG (27.0-34.0); MEAN CORPUSCULAR HGB CONC 34.6 % (32.0-36.0); MONO % 7.3 % (0.0-8.0); NEUT % 70.7 % (16.0-70.0); PLATELET COUNT 130 TH/MM3 (150-450); RED BLOOD COUNT 5.08 MIL/MM3 (4.50-5.90); RED CELL DISTRIBUTION WIDTH 13.3 % (11.6-17.2); WHITE BLOOD COUNT 5.2 TH/MM3 (4.0-11.0)
[2016-12-10 09:04] LABS: APTT (PATIENT) 27.5 SEC (24.3-30.1); PROTHROMBIN TIME - PATIENT 10.7 SEC (9.8-11.6)
[2016-12-10 09:24] LABS: BLOOD, URINE NEG (NEG); COMMENT (UR) CULT NOT INDICATED; CULTURE IF INDICATED CULT NOT INDICATED; GLUCOSE,URINE NEG (NEG); KETONE, URINE NEG (NEG); MUCUS URINE FEW /lpf (OCC); NITRITE,URINE NEG (NEG); PH, URINE 5.5 (5.0-8.5); SQUAMOUS EPITHELIAL CELL URINE <1 /hpf (0-5); URINE COLOR YELLOW (YELLW/STRAW)
[2016-12-10 09:32] LABS: BICARBONATE 30.9 MEQ/L (21.0-32.0); POTASSIUM 4.6 MEQ/L (3.5-5.1)
--- NOTE | 2016-12-10 16:54 | EKG ---
Date Performed: 12/10/2016 Time Performed: 08:18:57 PTAGE: 76 years EKG: Sinus rhythm BORDERLINE LEFT AXIS DEVIATION BORDERLINE ECG Compared to prior tracing no significant change PREVIOUS TRACING : 06/27/2014 21.46 DOCTOR: Rica Aguilar Interpretating Date/Time 12/10/2016 16:54:23
== END ==
LOC: CPRE 07:56
PROVIDERS: ATTEND Orthopaedic Surgery
DX: Z01.810 Encounter for preprocedural cardiovascular examination (principal); Z01.812 Encounter for preprocedural laboratory examination; M79.609 Pain in unspecified limb; M16.11 Unilateral primary osteoarthritis, right hip; I10 Essential (primary) hypertension; R94.31 Abnormal electrocardiogram [ECG] [EKG]
CPT/HCPCS: 36415; 80048; 81001; 85025; 85610; 85730; 93005

== ENCOUNTER 2018-10-23 05:10 | Inpatient (IN) ==
[2018-10-23] MEDS ORDERED: Sodium Chlor 0.9% Inj 80 ML, Bupivacaine Liposo PF 1.3% Inj 20 ML P-ARTICULR SCH ×2 (05:40)
[2018-10-23] MEDS ORDERED: Chlorhexidine 4% Topical 120 APPLIC/120 ML Bottle TOPICAL SCH (05:45)
[2018-10-23] MEDS ORDERED: Chlorhexidine Gluconate 2% 1 Pack (2 Cloths) TOPICAL ONE (05:47)
[2018-10-23] MEDS ORDERED: Metoprolol Tartrate 25 MG Tablet PO ONE (05:47)
[2018-10-23] MEDS ORDERED: Sodium Chlor 0.9% Inj 500 ML IV.SIG SCH (06:00)
[2018-10-23] MEDS ORDERED: ceFAZolin 2 GM Premix Inj 2 GM/50 ML PIGGYBACK IV.SIG SCH (06:00)
[2018-10-23] MEDS ORDERED: Tranexamic Acid Inj 840 MG in Sodium Chlor 0.9% Inj 100 ML IV.SIG SCH ×2 (06:00→08:41)
[2018-10-23] MEDS ORDERED: Bupivacaine Liposomal PF 1.3% Inj 20 ML Vial ONE (06:25)
[2018-10-23] MEDS ORDERED: Acetaminophen 325 MG Tablet PO PRN (06:56)
[2018-10-23] MEDS ORDERED: Post-op Orders (for Pharmacy) OTHER STA (06:56)
[2018-10-23] MEDS ORDERED: Morphine Inj 4 MG/ML Vial IV.PUSH PRN (06:56)
[2018-10-23] MEDS ORDERED: Zolpidem Tartrate 5 MG Tablet PO PRN (06:56)
[2018-10-23] MEDS ORDERED: Aluminum/Magnesium/Simethacone Susp 30 ML UDC PO PRN (06:56)
[2018-10-23] MEDS ORDERED: Bisacodyl 10 MG Supp RECTAL PRN (06:56)
[2018-10-23] MEDS ORDERED: Tranexamic Acid Inj 0 MG in Sodium Chlor 0.9% Inj 100 ML IV.SIG ONE (06:56)
[2018-10-23] MEDS ORDERED: Allopurinol 300 MG Tablet PO SCH (09:00)
[2018-10-23] MEDS ORDERED: Non-Formulary Drug (Omega-3s-Dha-Epa-Fish Oil [Omega-3 Fish Oil] 1 CAP) PO SCH (09:00)
--- NOTE | 2018-10-23 09:45 | P.DCO ---
- Physical Therapy Physical Therapy: Gait training Knee: Total knee, Protocol: Right, Gait training, Full weight bearing Right Lower Extremity Weight Bearing: Weight bearing as tolerated Right Lower Extremity Range of Motion: Active ROM (Active, active assisted, passive range of motion. Range of motion goal is 0 degrees extension to 135 degrees. Range of motion in the operating room went to 140 degrees.) - Nursing Nursing: Dressing changes (Do not remove Dermabond Prineo (the tape that is directly on the wound).Leave the Optifoam dressing in place for 7 days. After this, daily dressing changes will be done taking care to avoid injuring or removing the Dermabond Prineo.) Dressing changes: Other (Do not remove Dermabond Prineo (the tape that is directly on the wound).Leave the Optifoam dressing in place for 7 days. After this, daily dressing changes will be done taking care to avoid injuring or removing the Dermabond Prineo.) - Case Management Consult Case Management Consult-Home Health: Yes - Certification Need for Home Health services: I have seen patient Anuel Hutchinson on 10/23/18. My clinical findings support the need for the requested home health care services because: Need for Home Health Services: Limited mobility due to disease progression, Limited ability to care for self, High risk of falls Homebound Certification: I certify that my clinical findings support that this patient is homebound because: Homebound Certification: Post-op weakness, Unsteady gait/balance, Unsafe to leave home unassisted
--- NOTE | 2018-10-23 10:02 | P.OP ---
- Preoperative Diagnosis (1) Primary osteoarthritis of right knee Comment: Nickel allergy - Postoperative Diagnosis (1) Primary osteoarthritis of right knee Comment: Nickel allergy Date of procedure: 10/23/18 Procedure: Right total knee arthroplasty using Garza and Nephew Journey II prosthesis with Oxinium (uncemented) Anesthesia: regional (Adductor canal block), local (Exparel), spinal Surgeon: Fidencio Russo MD Radiophone Operator: VIANCA Ceja Estimated blood loss (mL): 350 Tourniquet time (min): 0 Pathology: none sent Operation and Findings: Indications and Findings: This 78-year-old man has had long-standing osteoarthritis in his right knee. This has been nonresponsive to conservative measures including anti-inflammatory agents, analgesics, activity modification and ambulatory aids. He has a known nickel allergy. Physical findings showed an extension lag of about 5 degrees with laxity in the medial compartment, medial compartment tenderness, tricompartmental osteophytes and a significant effusion with palpable crepitation throughout the entire range of motion. Radiographic findings showed loss of articular cartilage to [id number] in the medial compartment with tricompartmental osteophytes and subchondral sclerosis. Operative findings: There was loss of articular cartilage to exposed subchondral bone in the medial compartment and also the lateral compartment. There were degenerative changes in the patellofemoral compartment. There are osteophytes. There was subchondral sclerosis particularly in the medial compartment but throughout the knee. The prosthesis used was a Garza and Nephew Journey II prosthesis. The femur was a size a size 6 cruciate retaining Journey II CR Oxinium component. The tibial baseplate was a size a size 5 Journey nonporous with a 9 mm Journey II CR XLPE spacer. The patella was a size 35 mm oval Margie II resurfacing. After a regional anesthetic by adductor canal block was administered, the patient was brought to the clean-air operating suite. A spinal anesthetic was administered. The position was supine with a small bolster under the hip on the operative side. A pneumatic tourniquet was applied to the upper thigh. The lower extremity was prepped with alcohol, Hibiclens and ChloraPrep and draped in the usual manner with the knee draped free. An appropriate timeout procedure was carried out. An incision was made from about 3 fingerbreadths above the superior medial pole of patella down the tibial tubercle on the medial side. The incision was deepened through the subcutaneous tissue to the retinacular structures which were exposed medially and laterally. A medial retinacular incision was made from the superior middle pole of patella down the tibial tubercle and up into the quadriceps tendon splitting it longitudinally and the medial one third. The patella was reflected. The infrapatellar fat pad was debulked. The anterior cruciate ligament was excised. Medial and lateral meniscectomies were initiated. Fenestrations were made in the distal femur and proximal tibia for intramedullary referencing guides. The posterior surface of the patella was excised with the oscillating saw. A patellar protector was applied. The distal femoral cutting guide and jig were assembled for a 5 cut. When this was in position, the cutting block was stabilized with pins. The jig was removed. The distal femoral cut was completed with the oscillating saw. The proximal tibia was exposed. The medial and lateral meniscectomies were completed. The extra medullary tibial cutting guide was positioned in place but did not give adequate positioning reliably. For this reason, the intramedullary tibial cutting guide was used. The proximal tibial cutting guide was positioned in place and stabilized for rotation. The depth of cut was verified with a stylus off the lateral side. The cutting block was stabilized with pins. The jig was removed. The proximal tibial cut was made with the oscillating saw taking care to prevent injury to neurovascular and ligamentous structures. Proximal tibial bone was removed. The depth of cut was verified with spacer blocks in flexion and extension. A secondary tibial cut was made, removing an additional 2 mm. The femoral sizing guide was positioned in place along Whitesides line and the epicondylar axis and stabilized with pins. The femoral size was determined as noted above. The 5-in-1 cutting block was positioned in place. Anterior and posterior cuts were made followed by posterior and anterior chamfer cuts taking care to prevent injury to ligamentous structures. Osteophytes were trimmed from the distal femur. A bone plug was placed into the fenestration of the distal femur. Local anesthetic was administered with Exparel in the posterior capsule. The tibial baseplate trial was positioned in place. After verifying the appropriate size, the base plate trial was positioned in place. The tibial baseplate was pinned in place on the tibia. The femoral component was impacted into place. The alignment was checked. The final femoral cut was made through the prosthesis. The trochlear portion of the trial was positioned in place. Attention was directed to the patella. The patella drill guide was positioned in place for the appropriate sized patella. Patellar drilling was carried out. The trial patella was positioned in place. The knee was taken through a range of motion which was easily 0 extension to 140. The patella trial was removed. The femoral drill holes were made. The femoral trials were removed. The tibial spacer was removed. A drill hole was made through the tibial guide. The tibial punch was impacted through the proximal tibial punch guide. The cut ends of bone were cleaned with pulsed lavage. Simplex cement was pressurized into the proximal aspect of the tibia after drying. The tibial baseplate was impacted into place and seated appropriately. Excess cement was trimmed. The posterior surface of the patella was cleaned with pulse lavage. Cement was injected into the posterior surface of the patella and the patella component. The patella component was seated with the patellar clamp and tightened appropriately. Excess cement cement was trimmed. The distal end of the femur was cleaned with pulse lavage. After drying, cement was applied to the distal end of the femur and the femoral component. The femoral component was then impacted into place and seated appropriately. Excess cement was trimmed. The spacer was inserted. The remainder of the Exparel was injected throughout the knee as a local anesthetic. Drains were brought out the superior lateral aspect of the suprapatellar pouch. The knee was taken through a range of motion which was comparable to the previous range of motion with excellent stability in flexion and extension and appropriate patellofemoral tracking. Wound closure commenced using #1 Vicryl interrupted [id number] sutures and a continuous barbed suture for the capsular and fascial structures, 2-0 Vicryl interrupted simple sutures with buried knots for the subcutaneous tissues and 4-0 Monocryl, continuous subcuticular closure for the skin. The wound was dressed with Dermabond Prineo followed by Optifoam silver impregnated dressing. Sterile soft roll with a cooling pad and Eder bandage from the base of the toes to mid thigh were then applied. The patient was transferred from the operating room to the recovery room in satisfactory condition having tolerated procedure well. Counts were correct. Specimens: None. Estimated blood loss: 350 milliliters
[2018-10-23] MEDS ORDERED: *Ondansetron Inj 4 MG/2 ML Vial PERIprocedural Use ONLY ONE (10:23)
--- NOTE | 2018-10-23 10:49 | XR ---
EXAM DATE: 10/23/2018 10:46 AM EST AGE/SEX: 78 years / Male INDICATIONS: Post operative right knee. CLINICAL DATA: This is the patient's initial encounter. Patient reports that signs and symptoms have been present for 1 day and indicates a pain score of 0/10. MEDICAL/SURGICAL HISTORY: None. None. COMPARISON: POI, XR KNEE COMPLETE, RIGHT, 10/13/2017. . FINDINGS: 2 views status post total knee arthroplasty demonstrates normal alignment of the osseous structures. The hardware is intact. [address] No other radiopaque foreign bodies. CONCLUSION: Expected postsurgical findings after total knee arthroplasty. Electronically signed by: Herrera Alcala MD Board Certified Radiologist 10/23/2018 10:48 AM EST
--- NOTE | 2018-10-23 11:59 | P.CONIM ---
History of Present Illness Primary Care Provider: Luis Fernando Garcia Chief Complaint: post-op medical management History of Present Illness: patient is a 78 y/o male with history of hypertension, dyslipidemia, osteoarthritis and depression, who underwent right total hip arthroplasty today. he says that he had some nausea earlier which has resolved. pain is controlled. he denies any chest pain, sob, dizziness or any other complaints. Review of Systems Review of Systems: all other systems reviewed are negative [facility] Medical History Medical History Anxiety (Acute) Arthritis (Acute) Bronchitis (Acute) Depression (Acute) High cholesterol (Acute) Hx deployment (Acute) Hypertension (Acute) Joint pain (Acute) Seasonal allergies (Acute) Skin cancer (Acute) Wears glasses (Acute) Surgical History Surgical History History of arthroplasty of left hip (Acute) History of arthroplasty of right hip (Acute) History of cataract extraction with lens replacement (Acute) History of detached retina repair (Acute) History of hand surgery (Acute) History of knee surgery (Acute) History of tonsillectomy (Acute) Social History Social History Substance History: No History of Abuse Second Hand Smoke Exposure: No Smoking Status: Never smoker How Often Do You Have a Drink Containing Alcohol: 4 or more times a week Recent Travel in [facility] within the Last 8 Weeks: No Recent Out of Country Travel within the Last 8 Weeks: No Medications and Allergies Allergies Allergy/AdvReac Type Severity Reaction Status Date / Time nickel Allergy Severe BONE Verified 10/23/18 05:52 DETERIOTATION oxycodone [From OxyContin] Allergy Hallucinati Verified 10/23/18 05:53 ons Home Medications Medication Instructions Recorded Confirmed Type albuterol sulfate 2 puff INHALATION Q6H PRN 10/09/18 10/23/18 History allopurinol 300 mg PO DAILY 10/09/18 10/23/18 History amlodipine 5 mg PO BID 10/09/18 10/23/18 History aspirin [Aspirin Low Dose] 81 mg PO DAILY 10/09/18 10/23/18 History atorvastatin 10 mg PO DAILY 10/09/18 10/23/18 History cetirizine [Zyrtec] 10 mg PO DAILY 10/09/18 10/23/18 History cholecalciferol (vitamin D3) 2,000 unit PO DAILY 10/09/18 10/23/18 History [Vitamin D3] enalapril maleate 10 mg PO BID 10/09/18 10/23/18 History hydrocodone-acetaminophen 1 tab PO Q6H PRN 10/09/18 10/23/18 History [id number]-epa-fish oil [[place]-3 1 cap PO BID 10/09/18 10/23/18 History Fish Oil] sertraline 150 mg PO DAILY 10/09/18 10/23/18 History Active Medications: Active Medications Acetaminophen (Tylenol) 650 mg PO Q6H PRN PRN Reason: Pain Less Than 3 On Scale Hydrocodone Bitart/Acetaminophen ([place] 7.5/325) 1 tab PO Q4H PRN PRN Reason: PAIN SCALE 4 TO 6 MODERATE Hydrocodone Bitart/Acetaminophen ([place] 7.5/325) 2 tab PO Q6H PRN PRN Reason: PAIN SCALE 7 TO 10 SEVERE Al Hydrox/Mg Hydrox/Simethicone (Mag-Al Plus Susp Liq) 30 ml PO Q6H PRN PRN Reason: INDIGESTION Al Hydroxide/Mg Hydroxide (Milk Of Magnesia Liq) 30 ml PO BID PRN PRN Reason: Mild Constipation Albuterol (Ventolin Hfa Inh) 2 puff INH Q6H PRN PRN Reason: WHEEZING Allopurinol (Zyloprim) 300 mg PO DAILY [facility] Amlodipine Besylate (Norvasc) 5 mg PO BID [facility] Aspirin (Aspirin Chew) 81 mg PO BID [facility] Atorvastatin Calcium (Lipitor) 10 mg PO DAILY [facility] Bisacodyl (Dulcolax Supp) 10 mg RECTAL DAILY PRN PRN Reason: SEVERE CONSITIPATION Cetirizine HCl (Zyrtec) 10 mg PO DAILY [facility] Chlorhexidine Gluconate (Hibiclens 4% Topical) 1 applicatio TOPICAL ONCE [facility] Stop: 10/27/18 05:44 Last Admin: 10/23/18 05:50 Dose: 1 applicatio Sodium Chloride 80 ml/ (Bupivacaine Liposome 20 ml) 0 ml P-ARTICULR UNSCH X1 [facility] Stop: 10/23/18 15:00 Last Admin: 10/23/18 07:35 Dose: 100 bag Diphenhydramine HCl (Benadryl) 25 mg PO Q6H PRN PRN Reason: ITCHING Enalapril Maleate (Vasotec) 10 mg PO BID [facility] Tranexamic Acid 840 mg/ Sodium (Chloride) 108.4 mls @ 200 mls/hr IV.SIG ONCE [facility] Stop: 10/23/18 14:00 Last Infusion: 10/23/18 07:35 Dose: Infused Tranexamic Acid 840 mg/ Sodium (Chloride) 108.4 mls @ 200 mls/hr IV.SIG ONCE [facility] Stop: 10/23/18 15:00 Last Infusion: 10/23/18 10:10 Dose: Infused Cefazolin Sodium/Dextrose (Ancef 2 Gm Premix Inj) 2 gm in 50 mls @ 100 mls/hr IV.SIG NON DESTRUCTIVE EVALUATION MANAGER [facility] Stop: 10/27/18 05:59 Last Infusion: 10/23/18 07:35 Dose: Infused Lactated Ringer's (Lr 1000 Ml Inj) 1,000 mls @ 30 mls/hr IV.SIG .Q24H [facility] Stop: 10/24/18 05:59 Last Admin: 10/23/18 05:45 Dose: 30 mls/hr Sodium Chloride (Ns Inj) 500 mls @ 30 mls/hr IV.SIG .Q10H [facility] Last Admin: 10/23/18 06:08 Dose: Not Given Cefazolin Sodium 1,000 mg/ (Sodium Chloride) 100 mls @ 200 mls/hr IV.SIG Q6H [facility] Stop: 10/23/18 19:29 Lactated Ringer's (Lr 1000 Ml Inj) 1,000 mls @ 80 mls/hr IV.CONT .[id number] [facility] Last Admin: 10/23/18 10:05 Dose: 80 mls/hr Ketorolac Tromethamine (Toradol Inj) 15 mg IV.PUSH Q6H [facility] Stop: 10/25/18 01:01 Lactulose (Lactulose Liq) 30 ml PO DAILY PRN PRN Reason: SEVERE CONSITIPATION Miscellaneous Information (Misc Post-Op Orders (For Pharmacy)) 0 each OTHER STAT STA Stop: 10/23/18 06:57 Miscellaneous Information (Misc Nursing Information) 0 each OTHER UNSCH PRN PRN Reason: SEE LABEL COMMENTS Stop: 10/24/18 10:02 Morphine Sulfate (Morphine Inj) 2 mg IV.PUSH Q3H PRN PRN Reason: BREAKTHROUGH PAIN Last Admin: 10/23/18 11:52 Dose: 2 mg Ondansetron HCl (Zofran Odt) 4 mg PO Q6H PRN PRN Reason: NAUSEA OR VOMITING Senna/Docusate Sodium (Daxa-Colace) 1 tab PO BID [facility] Sennosides (Senokot) 17.2 mg PO BID PRN PRN Reason: Moderate Constipation Sertraline HCl (Zoloft) 150 mg PO DAILY [facility] Sodium Chloride (Ns Flush) 2 ml IV.FLUSH BID [facility] Sodium Chloride (Ns Flush) 2 ml IV.FLUSH PRN PRN PRN Reason: FLUSH AFTER USING IV ACCESS Vitamin D (Vitamin D3) 2,000 unit PO DAILY [facility] Zolpidem Tartrate (Ambien) 5 mg PO HS PRN PRN Reason: INSOMNIA Physical Exam Vital signs: Vital Signs 10/23/18 05:45 10/23/18 10:05 10/23/18 10:15 Temperature 98.4 F 97.5 F L Pulse Rate 60 57 L 54 L Respiratory Rate 14 16 16 Blood Pressure 165/79 H 132/65 147/67 H Pulse Oximetry 97 93 L 95 10/23/18 10:24 10/23/18 10:25 10/23/18 10:30 Temperature Pulse Rate 53 L Respiratory Rate 16 Blood Pressure 145/70 H Pulse Oximetry 90 L 96 91 L 10/23/18 10:45 10/23/18 10:53 Temperature 98.4 F Pulse Rate 53 L Respiratory Rate 17 Blood Pressure 147/70 H Pulse Oximetry 97 96 Intake & Output 10/22/18 10/23/18 10/23/18 18:59 06:59 18:59 Intake Total 900.8 / 900.8 Output Total 350 / 350 Balance 550.8 / 550.8 Weight 84.1 kg Intake: IV 266.8 / 266.8 Cyklokapron Inj 840 MG In NS 216.8 / 216.8 Inj 100 ML @ 200 mls/hr IV.SIG ONCE [facility] Rx#:[id number] Ancef 2 GM Premix Inj 2 gm In 50 / 50 50 ml @ 100 mls/hr IV.SIG NON DESTRUCTIVE EVALUATION MANAGER [facility] Rx#:[id number] Anesthesia Amount 634 / 634 Output: Estimated Blood Loss 350 / 350 Other: Weight On Admission 84.1 kg Constitutional no acute distress Routine HEENT Exam Eye: Present PERRL Routine Neck Exam Present supple Routine Respiratory Exam Present CTA bilaterally Routine Cardiovascular Exam Present RRR Routine Abdominal Exam Present soft Routine Extremities Exam Comments: right knee covered with clean dressing. Routine Neurological Exam Present alert and oriented X3 Results Imaging Impressions Knee X-Ray 10/23/18 06:54 CONCLUSION: Expected postsurgical findings after total knee arthroplasty. ABG Impressions Knee X-Ray 10/23/18 06:54 CONCLUSION: Expected postsurgical findings after total knee arthroplasty. Assessment and Plan (1) Primary osteoarthritis of right knee: Code(s): M17.11 - Unilateral primary osteoarthritis, right knee Status: Chronic Plan A/P - osteoarthritis- s/p right total knee arthroplasty continue with pain control and PT- management per ortho. -hypertension/ dyslipidemia/depression resumed home meds. -DVT prophylaxis; with aspirin per ortho. Thank you for the consult. Discussed Condition With: the patient and RN.
[2018-10-23] MEDS: ceFAZolin Inj 1 GM in Sodium Chlor 0.9% Inj 100 ML IV.SIG SCH ×2 (14:12→20:12)
[2018-10-23] MEDS: Ketorolac Inj 30 MG/ML (IVP) Vial IV.PUSH SCH ×2 (14:12→20:13)
[2018-10-23] MEDS: Senna/Docusate Sodium 8.6/50 MG Tablet PO SCH (20:12)
[2018-10-23] MEDS: amLODIPine 5 MG Tablet PO SCH (20:12)
[2018-10-24] MEDS: ceFAZolin Inj 1 GM in Sodium Chlor 0.9% Inj 100 ML IV.SIG SCH (02:18)
[2018-10-24] MEDS: Ketorolac Inj 30 MG/ML (IVP) Vial IV.PUSH SCH ×2 (02:19→09:52)
[2018-10-24 06:47] LABS: Hematocrit 34.1 % (39.0-51.0); Hemoglobin 11.8 gm/dL (13.0-17.0)
--- NOTE | 2018-10-24 07:00 | P.PNOP ---
Subjective Interval history: Postop day #1 He is doing well. He has minimal complaints related to the knee at this time. Did well with therapy. Physical therapy reports that the ambulation distance was 40 feet, then 125 feet. The range of motion was 0 degrees of extension to 80 degrees of flexion. Physical Exam Vital signs: Vital Signs 10/23/18 10:05 10/23/18 10:15 10/23/18 10:24 Temperature 97.5 F L Pulse Rate 57 L 54 L Respiratory Rate 16 16 Blood Pressure 132/65 147/67 H Pulse Oximetry 93 L 95 90 L 10/23/18 10:25 10/23/18 10:30 10/23/18 10:45 Temperature 98.4 F Pulse Rate 53 L 53 L Respiratory Rate 16 17 Blood Pressure 145/70 H 147/70 H Pulse Oximetry 96 91 L 97 10/23/18 10:53 10/23/18 12:00 10/23/18 16:00 Temperature 97.4 F L 97.5 F L Pulse Rate 63 65 Respiratory Rate 16 17 Blood Pressure 169/79 H 131/65 Pulse Oximetry 96 99 95 10/23/18 19:45 10/23/18 23:30 10/24/18 04:25 Temperature 98.4 F 98.0 F 97.4 F L Pulse Rate 68 65 63 Respiratory Rate 17 17 17 Blood Pressure 123/58 L 124/61 137/63 Pulse Oximetry 93 L 96 97 Intake & Output 10/23/18 10/24/18 10/24/18 18:59 06:59 18:59 Intake Total 1620.8 / 1620.8 640 / 640 Output Total 1680 / 1680 600 / 600 Balance -59.2 / -59.2 40 / 40 Weight 84.1 kg 84.1 kg Intake: IV 366.8 / 366.8 100 / 100 Cyklokapron Inj 840 MG In NS 216.8 / 216.8 Inj 100 ML @ 200 mls/hr IV.SIG ONCE [facility] Rx#:[id number] Ancef 2 GM Premix Inj 2 gm In 50 / 50 50 ml @ 100 mls/hr IV.SIG TECHNICAL ASSISTANT [facility] Rx#:[id number] Ancef Inj 1 GM In NS Inj 100 ML 100 / 100 100 / 100 @ 200 mls/hr IV.SIG Q6H [facility] Rx #:[id number] Oral 620 / 620 540 / 540 Anesthesia Amount 634 / 634 Output: Urine 1200 / 1200 450 / 450 Estimated Blood Loss 350 / 350 Wound Drainage 130 / 130 150 / 150 # 1 Right Knee Hemovac 130 / 130 150 / 150 Other: Date of Last Bowel Movement 10/22/18 # Bowel Movements 0 0 Narrative: He is resting comfortably, supine in bed. The dressing is dry and intact. His neurovascular status is intact. Results - Labs CBC & Chem 7: 10/24/18 05:36 Laboratory Results - last 24 hr 10/23/18 10/24/18 05:45 05:36 Hgb 11.8 L Hct 34.1 L Antibody Screen Negative - Imaging Impressions Knee X-Ray 10/23/18 06:54 CONCLUSION: Expected postsurgical findings after total knee arthroplasty. - Procedures Right total knee arthroplasty using Garza and Nephew Journey II prosthesis or enthesis cemented), on 10/23/2018. Assessment and Plan - Ortho Post Op Day # 1 - Problem List (1) Primary osteoarthritis of right knee Code(s): M17.11 - Unilateral primary osteoarthritis, right knee Status: Chronic Plan: Continue postop care and PT. I have discussed the findings at the time of surgery with him. - Assessment and Plan Condition: Good. Orthopedically stable. DVT prophylaxis: TEDs, aspirin, sequentials. Discharge plans: Home with home health care. An appointment was scheduled through the office. Prescriptions: Percocet 7.5/325; Patient is having significant pain caused by a total knee arthroplasty which will last more than 3 days. Trial of Tylenol has not helped. I believe that it is medically necessary to treat patients pain because it is affecting patients ability to participate in postoperative rehabilitation and perform activities of daily living in a comfortable and efficient manner. I [facility] prior to completing the prescription.
--- NOTE | 2018-10-24 07:00 | P.DS ---
Date of admission: 10/23/18 05:10 Primary care physician: Luis Fernando Garcia Attending physician on discharge: Fidencio Russo Anticipated date of discharge: 10/24/18 Brief History from admission: This 78-year-old man has had right knee nonresponsive to conservative measures including anti-inflammatory agents, analgesics, activity modification and ambulatory aids. Physical findings showed genu valgum with medial laxity, medial crepitation and patellofemoral crepitation, osteophytes and tenderness. Radiographic findings showed significant degenerative change in the medial compartment as well as the lateral and patellofemoral compartments with osteophytes, eburnation and and loss of joint space to [id number]. DS: Diagnosis - Discharge Diagnosis (1) Primary osteoarthritis of right knee Status: Chronic Diagnosis: Principal (Nickel allergy) (2) Status post total right knee replacement using cement Status: Acute Diagnosis: Principal DS: Medications - Discharge Medications Prescriptions: hydrocodone-acetaminophen 1 tab PO Q4H PRN 7 Days #42 tab PRN Reason: Pain oxycodone-acetaminophen 1 tab PO Q4H PRN 7 Days #42 tab PRN Reason: Pain DS: Summary Hospital Course: The patient was admitted as noted above. The above noted operative procedure was carried out that day. Preoperatively prophylactic antibiotics were administered Ancef according to protocol. These were continued postoperatively. The patient also received tranexamic acid to help with hemostasis according to protocol. In the postanesthesia care unit mechanical methods of DVT prophylaxis in the form of VARINDER stockings and sequentials were initiated. Physical therapy was initiated on the day of surgery. On postoperative day #1 physical therapy continued. DVT prophylaxis with aspirin 81 mg twice daily was initiated at this time. The patient continued physical therapy throughout the hospitalization. The distance walked and range of motion improved throughout the hospitalization. The patient was discharged on postoperative day 1 with the disposition being to with home health care. An appointment for follow-up was made prior to admission. - Time Spent with Patient Total time spent providing and/or coordinating discharge services: Less than 30 minutes - Quality: VTE Deep Vein Thrombosis/Pulmonary Embolism Present on Admission: No Exam Vital signs: Vital Signs 10/23/18 10:05 10/23/18 10:15 10/23/18 10:24 Temperature 97.5 F L Pulse Rate 57 L 54 L Respiratory Rate 16 16 Blood Pressure 132/65 147/67 H Pulse Oximetry 93 L 95 90 L 10/23/18 10:25 10/23/18 10:30 10/23/18 10:45 Temperature 98.4 F Pulse Rate 53 L 53 L Respiratory Rate 16 17 Blood Pressure 145/70 H 147/70 H Pulse Oximetry 96 91 L 97 10/23/18 10:53 10/23/18 12:00 10/23/18 16:00 Temperature 97.4 F L 97.5 F L Pulse Rate 63 65 Respiratory Rate 16 17 Blood Pressure 169/79 H 131/65 Pulse Oximetry 96 99 95 10/23/18 19:45 10/23/18 23:30 10/24/18 04:25 Temperature 98.4 F 98.0 F 97.4 F L Pulse Rate 68 65 63 Respiratory Rate 17 17 17 Blood Pressure 123/58 L 124/61 137/63 Pulse Oximetry 93 L 96 97 Intake & Output 10/23/18 10/24/18 10/24/18 18:59 06:59 18:59 Intake Total 1620.8 / 1620.8 640 / 640 Output Total 1680 / 1680 600 / 600 Balance -59.2 / -59.2 40 / 40 Weight 84.1 kg 84.1 kg Intake: IV 366.8 / 366.8 100 / 100 Cyklokapron Inj 840 MG In NS 216.8 / 216.8 Inj 100 ML @ 200 mls/hr IV.SIG ONCE [facility] Rx#:[id number] Ancef 2 GM Premix Inj 2 gm In 50 / 50 50 ml @ 100 mls/hr IV.SIG STOVE BOTTOM WORKER [facility] Rx#:[id number] Ancef Inj 1 GM In NS Inj 100 ML 100 / 100 100 / 100 @ 200 mls/hr IV.SIG Q6H [facility] Rx #:[id number] Oral 620 / 620 540 / 540 Anesthesia Amount 634 / 634 Output: Urine 1200 / 1200 450 / 450 Estimated Blood Loss 350 / 350 Wound Drainage 130 / 130 150 / 150 # 1 Right Knee Hemovac 130 / 130 150 / 150 Other: Date of Last Bowel Movement 10/22/18 # Bowel Movements 0 0 Narrative: He is resting comfortably, supine in bed. The dressing is dry and intact. His neurovascular status is intact. Results Procedures completed during hospitalization: Right total knee arthroplasty using Garza and Nephew Journey II prosthesis ( uncemented) on 10/23/2017. Labs on day of discharge: Labs from last 24 hours 10/24/18 10/23/18 05:36 05:45 Hgb 11.8 L Hct 34.1 L Antibody Screen Negative - Impressions ITS Impressions Knee X-Ray 10/23/18 06:54 CONCLUSION: Expected postsurgical findings after total knee arthroplasty. Discharge Plan - Discharge Disposition Patient Disposition: /Home Health Service - Discharge Condition Condition: Stable - Discharge Order Discharge Orders: Discharge Order (Routine); Ordered 10/24/18 Ordered By: Fidencio Russo - Physicians Team Primary Care Provider: Luis Fernando Garcia Attending Provider: Fidencio Russo Other Providers: Rica Aguilar MD ; Helene Marshall MD - Rxs /Orders / Referrals /Forms Prescriptions: New aspirin 81 mg Tablet,Chewable 81 mg PO BID RF: 0 hydrocodone-acetaminophen 7.5-325 mg Tablet 1 tab PO Q4H PRN (Reason: Pain) 7 Days Qty: 42 RF: 0 oxycodone-acetaminophen 7.5-325 mg Tablet 1 tab PO Q4H PRN (Reason: Pain) 7 Days Qty: 42 RF: 0 Continue albuterol sulfate 90 mcg/actuation Hfa Aerosol Inhaler 2 puff INHALATION Q6H PRN (Reason: Wheezing) allopurinol 300 mg Tablet 300 mg PO DAILY amlodipine 5 mg Tablet 5 mg PO BID atorvastatin 10 mg Tablet 10 mg PO DAILY cetirizine [Zyrtec] 10 mg Tablet 10 mg PO DAILY cholecalciferol (vitamin D3) [Vitamin D3] 2,000 unit Capsule 2,000 unit PO DAILY enalapril maleate 10 mg Tablet 10 mg PO BID [id number] oil [[place]-3 Fish Oil] 300-1,000 mg Capsule 1 cap PO BID sertraline 100 mg Tablet 150 mg PO DAILY Discontinued aspirin [Aspirin Low Dose] 81 mg Tablet,Delayed Release (Dr/Ec) 81 mg PO DAILY hydrocodone-acetaminophen 7.5-325 mg Tablet 1 tab PO Q6H PRN (Reason: Pain) Referrals: Fidencio Russo MD [Physician] - See Instructions ( Your appointment has been scheduled for 11/06/18 at 2:15 PM. If you cannot make this appointment, please call the office to reschedule ) Luis Fernando Garcia MD [Primary Care Provider] - See Instructions ( Your appointment has been scheduled for 10/26/18 at 2:30 PM. If you cannot make this appointment, please call the office to reschedule ) - Discharge Instructions Patient Printed Instructions: Knee Replacement (DC)
[2018-10-24 08:32] VITALS: RESP 18; TEMP 98.3
[2018-10-24] MEDS ORDERED: Sertraline 50 MG Tablet PO SCH (09:00)
[2018-10-24] MEDS ORDERED: Senna/Docusate Sodium 8.6/50 MG Tablet PO SCH (09:00)
[2018-10-24] MEDS: amLODIPine 5 MG Tablet PO SCH (09:50)
[2018-10-24] MEDS: Senna/Docusate Sodium 8.6/50 MG Tablet PO SCH (09:50)
--- NOTE | 2018-10-24 12:02 | P.PNIM ---
Subjective Interval history: in no acute distress. pain is controlled. no new complaints. Physical Exam Vital signs: Vital Signs 10/23/18 16:00 10/23/18 19:45 10/23/18 23:30 Temperature 97.5 F L 98.4 F 98.0 F Pulse Rate 65 68 65 Respiratory Rate 17 17 17 Blood Pressure 131/65 123/58 L 124/61 Pulse Oximetry 95 93 L 96 10/24/18 04:25 10/24/18 08:31 Temperature 97.4 F L 98.3 F Pulse Rate 63 70 Respiratory Rate 17 18 Blood Pressure 137/63 141/71 H Pulse Oximetry 97 97 Intake & Output 10/23/18 10/24/18 10/24/18 18:59 06:59 18:59 Intake Total 1620.8 / 1620.8 640 / 640 Output Total 1680 / 1680 600 / 600 Balance -59.2 / -59.2 40 / 40 Weight 84.1 kg 84.1 kg Intake: IV 366.8 / 366.8 100 / 100 Cyklokapron Inj 840 MG In NS 216.8 / 216.8 Inj 100 ML @ 200 mls/hr IV.SIG ONCE [facility] Rx#:[id number] Ancef 2 GM Premix Inj 2 gm In 50 / 50 50 ml @ 100 mls/hr IV.SIG SURVEILLANCE INVESTIGATOR [facility] Rx#:[id number] Ancef Inj 1 GM In NS Inj 100 ML 100 / 100 100 / 100 @ 200 mls/hr IV.SIG Q6H [facility] Rx #:[id number] Oral 620 / 620 540 / 540 Anesthesia Amount 634 / 634 Output: Urine 1200 / 1200 450 / 450 Estimated Blood Loss 350 / 350 Wound Drainage 130 / 130 150 / 150 # 1 Right Knee Hemovac 130 / 130 150 / 150 Other: Date of Last Bowel Movement 10/22/18 # Bowel Movements 0 0 Constitutional no acute distress Routine Respiratory Exam Present CTA bilaterally Routine Cardiovascular Exam Present RRR Routine Abdominal Exam Present soft Routine Extremities Exam Comments: right knee covered with clean dressing. Routine Neurological Exam Present alert and oriented X3 Results Labs CBC & Chem 7: 10/24/18 05:36 Procedures Procedures: Right total knee arthroplasty using Garza and Nephew Journey II prosthesis (uncemented) on 10/23/2017. Assessment and Plan (1) Primary osteoarthritis of right knee: Code(s): M17.11 - Unilateral primary osteoarthritis, right knee Status: Chronic (2) Status post total right knee replacement using cement: Code(s): Z96.651 - Presence of right artificial knee joint Status: Acute Plan A/P - osteoarthritis- s/p right total knee arthroplasty continue with pain control and PT- management per ortho. -hypertension/ dyslipidemia/depression resumed home meds. -DVT prophylaxis; with aspirin per ortho. Progress Note: Quality VTE Deep Vein Thrombosis/Pulmonary Embolism Present on Admission: No
[2018-10-24 12:03] VITALS: BP 150/68; PULSE 68; O2SAT 96
== END 2018-10-24 14:00 | disposition home health service (06) | DRG 470 ==
LOC: HSDI 05:10 → N06 11:13
PROVIDERS: ADMIT Orthopaedic Surgery; ATTEND Orthopaedic Surgery
DX: Z91.048 Other nonmedicinal substance allergy status; E78.5 Hyperlipidemia, unspecified; F41.9 Anxiety disorder, unspecified; Z96.643 Presence of artificial hip joint, bilateral; I10 Essential (primary) hypertension; M17.11 Unilateral primary osteoarthritis, right knee; F32.9 Major depressive disorder, single episode, unspecified; Z85.828 Personal history of other malignant neoplasm of skin; E78.00 Pure hypercholesterolemia, unspecified; Z79.82 Long term (current) use of aspirin
CPT/HCPCS: 73560; 85014; 85018; 86850; 86900; 86901; 94150; 97110; 97116; 97150; 97162; 97167; C1776; C9290; J0690; J1580; J1885; J2250; J2270; J2405; J2704; J7120